=== PATIENT | female | born 1985 | race Two or more races ===

== ENCOUNTER 2025-10-03 19:16 | Emergency (ER) | payer MEDICAID ==
[~2025-10-03] VITALS: Ht 149.9 cm; Wt 86.0 kg
--- NOTE | 2025-10-03 19:32 | ED.PDOC ---
History of Present Illness HPI Comments 40-year-old female who came to ER via EMS for abdominal pain. Patient has been complaining of left upper quadrant abdominal pain since yesterday, sharp, nonradiating, progressively worsening the past few hours. States she is constipated but denies any nausea or vomiting. REVIEW OF SYSTEMS: General: No fever, no chills, or fatigue HEENT: No sore throat, no earache, no congestion, no neck pain. Cardiac: No chest pain. No palpitations. Lungs: No shortness of breath, no cough. GI: No nausea, no vomiting, no diarrhea, no constipation, (+) abdominal pain : No dysuria, frequency, or urgency. No hematuria. Musculoskeletal: No joint pain , no joint swelling, no extremity edema. Skin: No rash, no itching. Neuro: No headache, no dizziness, no weakness EXAM: General: Awake, alert and oriented. No acute distress. Skin: Skin in warm, dry and intact. Appropriate color for ethnicity. HEENT: The head is normocephalic and atraumatic. Conjunctivae are clear without exudates or hemorrhage. Sclera is non-icteric. EOM are intact. No signs of nystagmus. Eyelids are normal in appearance without swelling or lesions. Oral mucosa is pink and moist Neck: The neck is supple with normal range of motion. No JVD. Cardiac: Heart rate and rhythm are normal. No murmurs, gallops, or rubs are auscultated. Respiratory: No signs of respiratory distress. Lung sounds are clear in all lobes bilaterally without rales, rhonchi, or wheezes. Abdominal: Abdomen is soft, left upper quadrant, left lower quadrant tenderness. Bowel sounds are present and normoactive in all four quadrants. Extremities: Upper and lower extremities are atraumatic in appearance without deformity or edema. Neurological: The patient is awake, alert and oriented to person, place, and time with normal speech. Speech is clear. There is no facial asymmetry. Psychiatric: Appropriate mood and affect. 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 Allergies: Coded Allergies: NO KNOWN ALLERGIES (Unverified , 12/24/15) Home Meds Active Scripts Ondansetron Odt 4MG Tab (ZOFRAN PO) 4 Mg Tb, 4 MG PO TIDPRN PRN for 3 Days, #9 TAB ODT TAB-DISSOLVE IN MOUTH, THEN SWALLOW Prov:MANJINDER CHASE MD 10/03/25 Naproxen (Naproxen) 500 Mg Tab, 500 MG PO BIDPRN PRN for 5 Days, #10 TAB Prov:MANJINDER CHASE MD 10/03/25 Information Source: Patient, Emergency Med Personnel Mode of Arrival: EMS Past Medical History PAST MEDICAL HISTORY: Denies Surgical History: Cholecystectomy, , Tubal Ligation 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 Was a procedure done?: No Differential Dx Considerations may include: Gastritis, gastroenteritis, constipation, kidney stones, urinary tract infection X-Ray, Labs, Meds, VS Vital Signs Date Time Temp Pulse Resp B/P (MAP) Pulse Ox O2 Delivery O2 Flow Rate FiO2 10/03/25 21:56 97.8 89 20 134/73 (93) 100 97.8 10/03/25 19:16 98.8 92 20 122/86 97 98.8 Lab Test 10/03/25 19:45 Range/Units White Blood Count 6.5 4.4-10.8 10^3/uL Red Blood Count 3.71 L 4.0-5.20 10^6/uL Hemoglobin 9.9 L 12.2-16.2 g/dL Hematocrit 29.7 L 36.0-46.0 % Mean Corpuscular Volume 79.9 L 80.0-100.0 fL Mean Corpuscular Hemoglobin 26.6 L 28.0-32.0 pg Mean Corpuscular Hemoglobin Concent 33.2 32.0-36.0 g/dL Red Cell Distribution Width 16.1 H 11.8-14.3 % Platelet Count 375 140-450 10^3/uL Mean Platelet Volume 7.4 6.9-10.8 fL Neutrophils (%) (Auto) 63.7 37.0-80.0 % Lymphocytes (%) (Auto) 28.5 10.0-50.0 % Monocytes (%) (Auto) 6.4 0.0-12.0 % Eosinophils (%) (Auto) 1.1 0.0-7.0 % Basophils (%) (Auto) 0.3 0.0-2.0 % Neutrophils # (Auto) 4.1 1.6-8.6 10 ^3/uL Lymphocytes # (Auto) 1.8 0.4-5.4 10 ^3/uL Monocytes # (Auto) 0.4 0-1.3 10 ^3/uL Eosinophils # (Auto) 0.1 0-0.8 10 ^3/uL Basophils # (Auto) 0 0-0.2 10 ^3/uL Nucleated Red Blood Cells 0.0 % Sodium Level 137 136-145 mmol/L Potassium Level 3.6 3.5-5.1 mmol/L Chloride Level 106 98-107 mmol/L Carbon Dioxide Level 24 20-31 mmol/L Anion Gap 7 5-15 Blood Urea Nitrogen 9 9-23 mg/dL Creatinine 0.55 0.550-1.02 mg/dL Glomerular Filtration Rate Calc 120 >90 mL/min BUN/Creatinine Ratio 16.4 10.0-20.0 Serum Glucose 83 74-106 mg/dL Lactic Acid Level 0.7 0.4-2.0 mmol/L Calcium Level 7.8 L 8.7-10.4 mg/dL Lipase 28 12-53 U/L Current Medications Medications (Trade) Dose Ordered Sig/Edouard Route Start Time Stop Time Status Last Admin Ketorolac Tromethamine (Toradol Injection) 30 mg ONCE ONCE IM 10/03/25 19:30 10/03/25 19:32 DC 10/03/25 22:02 Tramadol HCl (Ultram) 50 mg ONCE ONCE PO 10/03/25 19:30 10/03/25 19:32 DC 10/03/25 22:01 Acetaminophen (Tylenol Tablet) 650 mg ONCE ONCE PO 10/03/25 19:30 10/03/25 19:32 DC 10/03/25 22:01 PATIENT: NEHAL LIRIANOCT: [id number]: [id number] : 1985 LOC: ER ROOM / BED: / AGE / SEX: 40 / F ADM STATUS: REG ER SERVICE 28 ORDERING PHYSICIAN: MANJINDER CHASE MD PROCEDURE(s): ABPL - CT AB PEL WO CON-NO ORAL OR IV REASON: RUQ, RLQ abdominal pain / tenderness ORDER NUMBER(s): [id number], ACCESSION NUMBER(s): [id number] EXAM: CT CT AB PEL WO CON-NO ORAL OR IV HISTORY: RUQ, RLQ abdominal pain / tenderness Comparison Study: CT CT AB PEL WO CON-NO ORAL OR IV on DOS: 10/31/23 Exam Date: 10/03/2025 08:12 PM Radiation Dose Information: CT Dose: CTDI volume is 9.3 mGy. Dose-length product is 531 mGy*cm Technique: Multidetector CT of the abdomen and pelvis was performed. Imaging was performed without IV contrast. Axial, coronal and sagittal multiplanar reformats were obtained from the axial data set by the technologist. Findings: Lack of intravenous contrast compromises evaluation of perfusion and for isodense lesions. Lower chest: Clear. Liver: Unremarkable Biliary system: Surgically absent gallbladder Spleen: Unremarkable Pancreas: Unremarkable. Adrenals: Unremarkable. Kidneys and ureters: No hydronephrosis Bowel: No obstruction. Normal appendix. Mild fat stranding adjacent to the left descending colon with mild wall thickening likely underdistention. Bladder: Unremarkable Reproductive organs: No abnormal mass. Lymph nodes: Unremarkable. Peritoneum: Unremarkable Vessels: Patency not evaluated on this noncontrast study. Bones and soft tissue: No aggressive osseous lesion IMPRESSION: Mild fat stranding adjacent to the left descending colon. There is minimal wall thickening of the descending colon likely related to underdistention. This is favored to be related to epiploic appendagitis, less likely colitis or diverticulitis. Time of 1ST Reevaluation: 19:29 Reevaluation 1ST: Unchanged Patient Education/Counseling: Need For Follow Up Family Education/Counseling: No Family Present SEPSIS Sepsis Screen Physician Orders Urinalysis (10/03/25 19:29) Ct Ab Pel Wo Con-No Oral Or Iv (10/03/25 19:29) Vital Signs Date Time Temp Pulse Resp B/P (MAP) Pulse Ox O2 Delivery O2 Flow Rate FiO2 10/03/25 21:56 97.8 89 20 134/73 (93) 100 97.8 10/03/25 19:16 98.8 92 20 122/86 97 98.8 Laboratory Tests Test 10/03/25 19:45 Lactic Acid Level 0.7 mmol/L (0.4-2.0) White Blood Count 6.5 10^3/uL (4.4-10.8) Medications Medications Dose Ordered Sig/Edouard Route Start Time Stop Time Status Last Admin Dose Admin Acetaminophen 650 mg ONCE ONCE PO 10/03/25 19:30 10/03/25 19:32 DC 10/03/25 22:01 Ketorolac Tromethamine 30 mg ONCE ONCE IM 10/03/25 19:30 10/03/25 19:32 DC 10/03/25 22:02 Tramadol HCl 50 mg ONCE ONCE PO 10/03/25 19:30 10/03/25 19:32 DC 10/03/25 22:01 Departure 1 Departure Time of Disposition: 20:52 Impression: Primary Impression: Epiploic appendagitis Additional Impression: Abdominal pain Disposition: HOME / SELF CARE / HOMELESS Condition: Stable Additional Instructions: ED DISCHARGE INSTRUCTIONS Instructions: Please read all instructions provided in this packet carefully. Although you have been discharged from the Emergency Department, this does not mean that you have a "clean bill of health". No definitive diagnosis for your symptoms has been made today. It is possible that you are in the process of developing a serious illness. This is why you must return to the ED without fail if any new or worsening symptoms (especially if your symptoms include chest pain, trouble breathing, abdominal pain, fever, headache, confusion, trouble seeing, or trouble walking) It is also very important that you see a primary care provider (PCP) within the next 3-5 days to follow up. If you are unable to get an appointment, return to the ED for re-evaluation. Overview What is epiploic appendagitis? Epiploic appendagitis is a rare cause of sudden abdominal pain. The name means inflammation of an epiploic appendage. Epiploic appendages are small pieces of fat that attach to and hang from the outside of your large intestine (colon). If one of them gets twisted, it can cut off its own blood supply. Management and Treatment What is the best treatment for epiploic appendagitis? Healthcare providers begin by offering nonsteroidal anti-inflammatory drugs (NSAIDs) to reduce inflammation and pain. Theyll offer additional pain relief if you need it. Most people improve quickly with medication. If you dont, rarely, your provider might need to remove the appendage in surgery. How long does epiploic appendagitis usually take to heal? Even without treatment, symptoms of epiploic appendagitis rarely last longer than a week. They might last up to four weeks in some circumstances. With medication, symptoms often improve within days. When does epiploic appendagitis treatment require surgery? Surgery for epiploic appendagitis is extremely rare. But if your symptoms dont improve, or if your diagnosis is still in doubt, your provider might need to look inside your abdomen for the cause of your ongoing pain. They can do this through a minimally invasive surgical procedure called a laparoscopy. Abdominal Pain: Care Instructions Overview Abdominal pain has many possible causes. Some aren't serious and get better on their own in a few days. Others need more testing and treatment. If your pain continues or gets worse, you need to be rechecked and may need more tests to find out what is wrong. You may need surgery to correct the problem. Don't ignore new symptoms, such as fever, nausea and vomiting, urination problems, pain that gets worse, and dizziness. These may be signs of a more serious problem. If you are not getting better, you may need more tests or treatment. The doctor has checked you carefully, but problems can develop later. If you notice any problems or new symptoms, get medical treatment right away. Follow-up care is a espinoza part of your treatment and safety. Be sure to make and go to all appointments, and call your doctor if you are having problems. It's also a good idea to know your test results and keep a list of the medicines you take. How can you care for yourself at home? Rest until you feel better. To prevent dehydration, drink plenty of fluids. Choose water and other clear liquids until you feel better. If you have kidney, heart, or liver disease and have to limit fluids, talk with your doctor before you increase the amount of fluids you drink. When you feel like eating, start with small amounts. Do not have alcohol, caffeine, or spicy, hot, or high-fat foods for a day or two. Avoid anti-inflammatory medicines such as aspirin, ibuprofen (Advil, Motrin), and naproxen (Aleve). These can cause stomach upset. Talk to your doctor if you take daily aspirin for another health problem. When should you call for help? Call 911 anytime you think you may need emergency care. For example, call if: You passed out (lost consciousness). You pass maroon or very bloody stools. You vomit blood or what looks like coffee grounds. You have severe belly pain. Call your doctor now or seek immediate medical care if: Your pain gets worse, especially if it becomes focused in one area of your belly. You have a new or higher fever. Your stools are black and look like tar, or they have streaks of blood. You have unexpected vaginal bleeding. You have symptoms of a urinary tract infection. These may include: Pain when you urinate. Urinating more often than usual. Blood in your urine. You are dizzy or lightheaded, or you feel like you may faint. Watch closely for changes in your health, and be sure to contact your doctor if: You are not getting better as expected. Credits for Abdominal Pain: Care Instructions Current as of: September 01, 2023 Author: [email or web address] Staff Clinical Review Board All [employer] education is reviewed by a team that includes physicians, nurses, advanced practitioners, registered dieticians, and other healthcare professionals. PROCEDURE(s): ABPL - CT AB PEL WO CON-NO ORAL OR IV REASON: RUQ, RLQ abdominal pain / tenderness ORDER NUMBER(s): [id number], ACCESSION NUMBER(s): [id number] EXAM: CT CT AB PEL WO CON-NO ORAL OR IV HISTORY: RUQ, RLQ abdominal pain / tenderness Comparison Study: CT CT AB PEL WO CON-NO ORAL OR IV on DOS: 10/31/23 Exam Date: 10/03/2025 08:12 PM Radiation Dose Information: CT Dose: CTDI volume is 9.3 mGy. Dose-length product is 531 mGy*cm Technique: Multidetector CT of the abdomen and pelvis was performed. Imaging was performed without IV contrast. Axial, coronal and sagittal multiplanar reformats were obtained from the axial data set by the technologist. Findings: Lack of intravenous contrast compromises evaluation of perfusion and for isodense lesions. Lower chest: Clear. Liver: Unremarkable Biliary system: Surgically absent gallbladder Spleen: Unremarkable Pancreas: Unremarkable. Adrenals: Unremarkable. Kidneys and ureters: No hydronephrosis Bowel: No obstruction. Normal appendix. Mild fat stranding adjacent to the left descending colon with mild wall thickening likely underdistention. Bladder: Unremarkable Reproductive organs: No abnormal mass. Lymph nodes: Unremarkable. Peritoneum: Unremarkable Vessels: Patency not evaluated on this noncontrast study. Bones and soft tissue: No aggressive osseous lesion IMPRESSION: Mild fat stranding adjacent to the left descending colon. There is minimal wall thickening of the descending colon likely related to underdistention. This is favored to be related to epiploic appendagitis, less likely colitis or diverticulitis. e-Prescriptions Ondansetron Odt 4MG Tab (ZOFRAN PO) 4 Mg Tb 4 MG PO TIDPRN PRN for 3 Days, #9 TAB ODT TAB-DISSOLVE IN MOUTH, THEN SWALLOW Prov: MANJINDER CHASE MD 10/03/25 Naproxen (Naproxen) 500 Mg Tab 500 MG PO BIDPRN PRN for 5 Days, #10 TAB Prov: MANJINDER CHASE MD 10/03/25 Comments Patient well-appearing, nontoxic. Advised prompt follow-up with PCP, return to the ED with any new, worsening or concerning symptoms. Critical Care Note Critical Care Time?: No Stability Stability form required: No Heart Score Heart Score: Heart Score Response (Comments) Value History N/A 0 EKG N/A 0 Age N/A 0 Risk Factors N/A 0 Troponin N/A 0 Total 0 I personally scribed for MANJINDER CHASE MD ([email or web address]) on 10/03/25 at 19:32. Electronically submitted by Joe Stone (Square). I personally scribed for MANJINDER CHASE MD ([email or web address]) on 10/03/25 at 20:02. Electronically submitted by Joe Stone ([employer]). I personally scribed for MANJINDER CHASE MD ([email or web address]) on 10/03/25 at 21:13. Electronically submitted by Joe Stone ([employer]). MANJINDER CHASE MD Oct 03, 2025 19:32
[2025-10-03 20:07] LABS: Hematocrit 29.7 % (36.0-46.0); Hemoglobin 9.9 g/dL (12.2-16.2); Mean Corpuscular Hemoglobin 26.6 pg (28.0-32.0); Mean Corpuscular Volume 79.9 fL (80.0-100.0); Nucleated Red Blood Cells % 0.0 %
[2025-10-03 20:15] LABS: Chloride 106 mmol/L (98-107); Potassium 3.6 mmol/L (3.5-5.1); Sodium 137 mmol/L (136-145)
[2025-10-03 20:16] LABS: Anion Gap 7 (5-15); Carbon Dioxide 24 mmol/L (20-31)
[2025-10-03 20:21] LABS: Glucose 83 mg/dL (74-106)
[2025-10-03 20:22] LABS: BUN/Creatinine Ratio 16.4 (10.0-20.0); Lipase 28 U/L (12-53)
--- NOTE | 2025-10-03 20:36 | DVH ---
EXAM: CT CT AB PEL WO CON-NO ORAL OR IV HISTORY: RUQ, RLQ abdominal pain / tenderness Comparison Study: CT CT AB PEL WO CON-NO ORAL OR IV on DOS: 10/31/23 Exam Date: 10/03/2025 08:12 PM Radiation Dose Information: CT Dose: CTDI volume is 9.3 mGy. Dose-length product is 531 mGy*cm Technique: Multidetector CT of the abdomen and pelvis was performed. Imaging was performed without IV contrast. Axial, coronal and sagittal multiplanar reformats were obtained from the axial data set by the technologist. Findings: Lack of intravenous contrast compromises evaluation of perfusion and for isodense lesions. Lower chest: Clear. Liver: Unremarkable Biliary system: Surgically absent gallbladder Spleen: Unremarkable Pancreas: Unremarkable. Adrenals: Unremarkable. Kidneys and ureters: No hydronephrosis Bowel: No obstruction. Normal appendix. Mild fat stranding adjacent to the left descending colon with mild wall thickening likely underdistention. Bladder: Unremarkable Reproductive organs: No abnormal mass. Lymph nodes: Unremarkable. Peritoneum: Unremarkable Vessels: Patency not evaluated on this noncontrast study. Bones and soft tissue: No aggressive osseous lesion IMPRESSION: Mild fat stranding adjacent to the left descending colon. There is minimal wall thickening of the descending colon likely related to underdistention. This is favored to be related to epiploic appendagitis, less likely colitis or diverticulitis.
[2025-10-03] MEDS ORDERED: NAPR-746 PO (21:00)
[2025-10-03] MEDS ORDERED: ZOFR4T PO (21:00)
[2025-10-03 21:06] LABS: Blood Urea Nitrogen 9 mg/dL (9-23); Calcium 7.8 mg/dL (8.7-10.4)
[2025-10-03 21:56] VITALS: BP 134/73; PULSE 89; RESP 20; TEMP 97.8; O2SAT 100
[2025-10-03] MEDS: ACETAMINOPHEN 325 MG TAB PO ONE (22:01)
[2025-10-03] MEDS: KETOROLAC TROMETH 30 MG/ML 1ML VIAL IM ONE (22:02)
== END 2025-10-03 22:29 | disposition left against medical advice (07) ==
LOC: EDBD 19:16 → ER 19:16
DX: Q43.8 Other specified congenital malformations of intestine (principal); R10.12 Left upper quadrant pain; F10.90 Alcohol use, unspecified, uncomplicated; Z90.49 Acquired absence of other specified parts of digestive tract; Z98.51 Tubal ligation status; Z79.899 Other long term (current) drug therapy
CPT/HCPCS: 36415; 74176; 80048; 83605; 83690; 85025; 96372; 99285; J1885